=== PATIENT | female | born 1945 | race Caucasian/White ===

== ENCOUNTER → 2017-03-09 | Day surgery (SDC) | payer MEDICARE, BC ==
[~2017-03-09] MED LIST: BUPIVACAINE HCL 0.5 % INJ/PF 30 ML SDV ONE
--- NOTE | 2017-03-09 09:00 | Operative Report ---
PROCEDURE: KNEE RADIOFREQUENCY left under ultrasound guidance Preoperative Diagnosis: Left knee osteoarthritis Postoperative Diagnosis: Left knee osteoarthritis 1. Superolateral genicular branch from the vastus lateralis 2. Superomedial genicular branch from the vastus medialis 3. Inferomedial genicular branch from the saphenous nerve 4. Medial retinacular branch from the vastus intermedius DATE OF PROCEDURE: March 09, 2017 ANESTHESIA: Local anesthesia COMPLICATIONS: None reported PROCEDURE IN DETAIL: Hx/PE/meds/allergies/applicable labs reviewed. No changes and no contraindications were found. Full description of the procedure was provided including benefits as well as possible complications including transient increased pain, stomach irritation, mood alteration, transient weakness or parasthesias as well as more serious nerve injury, bleeding, infection or allergic reaction. Informed consent was obtained and documented. The patient was brought to the procedure room and placed on the exam table in a comfortable supine position. The place for needle placement was obtained by manual palpation with ultrasound confirmation. The sterile field was prepared by chloroprep and sterile drapes. Local anesthesia superficial and deep was provided by local infiltration of 2% lidocaine. A 17g 50 mm radiofrequency introducer needle with a 4 mm active tip was placed overlying the left knee joint and using ultrasound guidance the needle was advanced to a bony endpoint on the superiolateral portion of the femoral condyle of the left knee. A second needle was advanced to a bony endpoint on the superiomedial portion of the femoral condyle. A third needle was then placed over the inferiomedial portion of the tibial condyle until a bony endpoint was met. (optional 4th needle placed 3mm above the patella). Attempted aspiration yielded no blood. Transverse ultrasound views showed all the needles at 50% depth of the femur and tibia. Motor stimulation was tested at 2.0 volts with no leg movement. Images were saved in AP and lateral. A mixture consisting of 0.5% bupivacaine was slowly injected. Then a radiofrequency ablation of each of the geniculate nerves were done at 80 degrees Celsius for 2 minutes and 30 seconds each. The needles were withdrawn. The patient tolerated the procedure well. After observation the patient was discharged with instructions and follow up. They were also provided contact information to call regarding any concerning symptoms or questions. IMPRESSION: 1. Successful geniculate left knee radiofrequency ablation was performed. 2. The patient was given prescription of home medicines. 3. RTC in 1-2 week(s).
== END ==
LOC: RAD 07:48
PROVIDERS: ATTEND Family Medicine
PROC: 3E0T3TZ Introduction of Destructive Agent into Peripheral Nerves and Plexi, Percutaneous Approach (ICD-10-PCS; principal; 2017-03-09)
DX: M17.12 Unilateral primary osteoarthritis, left knee (principal)
CPT/HCPCS: 64640

== ENCOUNTER 2018-10-09 14:29 | Emergency (ER) | payer MEDICARE, BC ==
[2018-10-09] MEDS ORDERED: FENTANYL CITRATE INJ/PF 100 MCG/2 ML AMPUL IV ONE (15:31)
[2018-10-09] MEDS ORDERED: ONDANSETRON HCL INJ/PF 4 MG/2 ML SDV IV ONE (15:31)
--- NOTE | 2018-10-09 15:34 | ER Document Report ---
ED General - General Chief Complaint: Fall Stated Complaint: FALL Time Seen by Provider: 10/09/18 15:18 Primary Care Provider: KIM BETHEA MD [Primary Care Provider] - Follow up as needed Mode of Arrival: Medic Information source: Patient, Relative, Emergency Med Personnel, [facility] Records Notes: 73-year-old female with reflux presents with an obvious deformity to her right ankle after a trip and fall that occurred just prior to arrival. Patient states that she was walking in the parking lot when she tripped over a parking curb. She denies head injury, pain in her knees or upper extremities, neck or back. She denies any preceding chest pain, shortness of breath, dizziness. Patient is not on any blood thinning medications. She does report a recent left knee meniscal repair a few weeks ago with Dr. Mendez. TRAVEL OUTSIDE OF THE [place] IN LAST 30 DAYS: No - HPI Onset: Just prior to arrival Onset/Duration: Sudden Quality of pain: Throbbing Severity: Severe Pain Level: 4 Associated symptoms: Leg swelling. denies: Chest pain, Nonproductive cough, Productive cough, Fever, Nausea, Vomiting, Shortness of breath, Weakness Exacerbated by: Movement Relieved by: Denies Similar symptoms previously: No Recently seen / treated by doctor: No - Related Data Allergies/Adverse Reactions: hydrochlorothiazide [From Hyzaar] Allergy (Intermediate, Verified 07/22/14 13:58) lisinopril [Lisinopril] Allergy (Intermediate, Verified 07/22/14 13:58) losartan potassium [From Hyzaar] Allergy (Intermediate, Verified 07/22/14 13:58) ciprofloxacin [From Cipro] Adverse Reaction (Verified 07/22/14 13:58) ciprofloxacin HCl [From Cipro] Adverse Reaction (Verified 07/22/14 13:58) Past Medical History - General Information source: Patient, Relative, [facility] Records - Social History Smoking Status: Never Smoker Frequency of alcohol use: None Drug Abuse: None Lives with: Family Family History: Reviewed & Not Pertinent Patient has suicidal ideation: No Patient has homicidal ideation: No - Past Medical History Cardiac Medical History: Reports: Hx Hypercholesterolemia Renal/ Medical History: Denies: Hx Peritoneal Dialysis Past Surgical History: Reports: Hx Bowel Surgery - partial colon removal hemmroid ectomy, Hx Hysterectomy - Immunizations Hx Diphtheria, Pertussis, Tetanus Vaccination: Yes Review of Systems - Review of Systems Notes: REVIEW OF SYSTEMS: CONSTITUTIONAL : Denies fever, chills, or sweats. Denies recent illness. Denies weight loss, recent hospitalizations. EENT: Denies visual changes, eye pain. Denies sore throat, oral lesions, difficulty swallowing. CARDIOVASCULAR: Denies chest pain. Denies palpitations. Denies lower extremity edema. RESPIRATORY: Denies cough. Denies shortness of breath, wheezing. GASTROINTESTINAL: Denies abdominal pain or distention. Denies nausea, vomiting, or diarrhea. Denies blood in vomitus, stools, or per rectum. Denies black, tarry stools. Denies constipation. GENITOURINARY: Denies difficulty urinating, painful urination, frequency, blood in urine, or vaginal discharge. MUSCULOSKELETAL: Denies back or neck pain or stiffness. +joint pain or swelling. SKIN: Denies rash, lesions or sores. HEMATOLOGIC : Denies easy bruising or bleeding. LYMPHATIC: Denies swollen glands. NEUROLOGICAL: Denies confusion or altered mental status. Denies loss of consciousness. Denies dizziness or lightheadedness. Denies headache. Denies weakness or paralysis. Denies problems difficulty with ambulation, slurred speech. Denies sensory loss, numbness, or tingling. Denies seizures. PSYCHIATRIC: Denies anxiety or stress. Denies depression, suicidal ideation, or homicidal ideation. Denies visual or auditory hallucinations. Physical Exam - Vital signs Vitals: Temp Pulse Resp BP Pulse Ox 97.2 F 85 14 134/77 H 95 10/09/18 14:43 10/09/18 14:43 10/09/18 14:43 10/09/18 14:43 10/09/18 14:43 - Notes Notes: PHYSICAL EXAMINATION: GENERAL: Well-appearing, well-nourished and in no acute distress. GCS 15 HEAD: Atraumatic, normocephalic. EYES: Pupils equal round and reactive to light, extraocular movements intact, sclera anicteric, conjunctiva are normal. ENT: Nares patent, oropharynx clear without exudates. Moist mucous membranes. No hemanotympanum . No blood in nares. No dental fracture NECK: Normal range of motion, supple without lymphadenopathy. Trachea midline LUNGS: Breath sounds clear to auscultation bilaterally and equal. No wheezes rales or rhonchi. HEART: Regular rate and rhythm without murmurs. Pulses intact all throughout. ABDOMEN: Soft, nontender, nondistended abdomen. No guarding, no rebound. No masses appreciated. Musculoskeletal: Right lower extremity with obvious distal deformity, ecchymosis, pain with palpation. DP, PT pulse intact. Mild ecchymosis to the left knee secondary to surgery patient reports seen there previously. No midline tenderness of the cervical, thoracic or lumbar spine. No step-offs, no deformities. Patient is able to move the other 3 extremities without difficulty. NEUROLOGICAL: Cranial nerves grossly intact. Normal speech, normal gait. Normal sensory, motor, and reflex exams. PSYCH: Normal mood, normal affect. SKIN: Ecchymosis to right ankle, left knee Course - Re-evaluation Re-evalutation: Laboratory 10/09/18 10/09/18 07 16:19 16:19 16:19 WBC 8.1 RBC 4.19 Hgb 13.8 Hct 41.8 MCV 100 H MCH 32.9 MCHC 33.0 RDW 14.6 H Plt Count 194 Seg Neutrophils % 74.7 Lymphocytes % 16.0 Monocytes % 8.3 Eosinophils % 0.7 Basophils % 0.3 Absolute Neutrophils 6.1 Absolute Lymphocytes 1.3 Absolute Monocytes 0.7 Absolute Eosinophils 0.1 Absolute Basophils 0.0 PT 12.4 INR 0.92 APTT 26.3 Sodium 136.6 L Potassium 4.4 Chloride 103 Carbon Dioxide 28 Anion Gap 6 BUN 12 Creatinine 0.76 Est GFR ( Amer) > 60 Est GFR (Non-Af Amer) > 60 Glucose 113 H Calcium 8.9 Total Bilirubin 0.7 Direct Bilirubin 0.3 Neonat Total Bilirubin Not Reportable Neonat Direct Bilirubin Not Reportable Neonat Indirect Bili Not Reportable AST 23 ALT 22 Alkaline Phosphatase 64 Total Protein 6.4 Albumin 3.8 Blood Type Antibody Screen 10/09/18 16:19 WBC RBC Hgb Hct MCV MCH MCHC RDW Plt Count Seg Neutrophils % Lymphocytes % Monocytes % Eosinophils % Basophils % Absolute Neutrophils Absolute Lymphocytes Absolute Monocytes Absolute Eosinophils Absolute Basophils PT INR APTT Sodium Potassium Chloride Carbon Dioxide Anion Gap BUN Creatinine Est GFR ( Amer) Est GFR (Non-Af Amer) Glucose Calcium Total Bilirubin Direct Bilirubin Neonat Total Bilirubin Neonat Direct Bilirubin Neonat Indirect Bili AST ALT Alkaline Phosphatase Total Protein Albumin Blood Type A POSITIVE Antibody Screen NEGATIVE Ankle X-Ray 10/09/18 00:00 IMPRESSION: Near anatomic reduction with no evidence for residual dislocation. Mild residual displacement of intra-articular fragments of the medial malleolus and posterior tibia. Pelvis X-Ray 10/09/18 15:28 IMPRESSION: No evidence of acute bony abnormality of the pelvis. Tibia/Fibula X-Ray 10/09/18 15:28 IMPRESSION: 1. Comminuted displaced distal tib-fib fracture and dislocation. Likely medial and posterior malleoli distal tibial fractures with posterolateral dislocation of the talus in relation to the distal tibia. 2. Obliquely oriented distal fibular fracture with lateral displacement of the distal fibular fracture fragment. Recommend dedicated ankle views for complete characterization. Lower Extremity CT 10/09/18 17:02 IMPRESSION: Highly comminuted fracture - dislocation of the right ankle mortise- distal tibia and fibula. Distal fibular fracture main diaphysis appears impacted approximately 6 cm. Distal tibia is medially dislocated 2.3 cm. Numerous intra-articular fracture fragments are present in the posterior and lateral joint space, with origins from both tibia and fibular articular components, largest fragment measuring 2.9 cm. The talus and calcaneus appear intact as does the remainder of the visualized mid and forefoot. Temp Pulse Resp BP Pulse Ox 97.2 F 85 14 134/77 H 95 10/09/18 14:43 10/09/18 14:43 10/09/18 14:43 10/09/18 14:43 10/09/18 14:43 10/09/18 15:34 73-year-old female presented after a trip and fall just prior to arrival. Patient has obvious deformity to her right ankle. She did receive fentanyl by EMS prior to arrival but has been waiting in the emergency department for some time and is requesting additional pain medication. Exam is significant for an obvious deformity of her right ankle with intact pulses. No other obvious signs of trauma. Imaging pending. Patient did receive fentanyl and Zofran. 10/09/18 16:[address] of her head and neck. 10/09/18 16:41 Seeking guidance from orthopedic surgery who is currently in the operating room. Questioning whether he would like a CT dedicated to the lower extremity and whether or not I should attempt to reduce and splint this fracture. Nursing has taken down the patient's information and Dr. Carolina states that he will get back to me. 10/09/18 17:28 Dr. Carolina reviewed the films and recommends reduction with splint placement. Will call back if unable to successfully reduce or patient unable to go home. 10/09/18 19:32 Dr. Carolina at the bedside and states that he spoke to the patient's orthopedic surgeon Dr. Mendez who will see the patient tomorrow. Patient is resting comfortably in her splint. She was provided copies of her imaging. 10/10/18 10:50 Patient states that she has a walker at home and will be able to obtain a wheelchair tomorrow morning. Her daughter is staying with her and can help her. She states she has no steps in the house. She was offered admission to our facility but states that she would like to see her own orthopedic surgeon tomorrow. We had a successful reduction and patient was placed in a sugar tong splint. Instructions regarding increased pain and loosening of the splint was given to the patient and her daughter. No evidence of compartment syndrome. Cap refill and sensation intact after splint placement. Patient was evaluated and treated as appropriate for the patient's presenting symptoms and complaint, with consideration of any critical or life threatening conditions that may be associated with their obtained history and exam as noted above. All results were discussed with patient and daughter who is at the bedside. Patient provided the opportunity to ask questions, and express concerns. Patient was educated on treatments based on their presumed diagnosis as noted above. At this time we will discharge the patient with return precautions and follow-up recommendations. Verbal discharge instructions given a the bedside. Medication warnings reviewed. Patient is in agreement with this plan and has verbalized understanding of return precautions. After careful consideration I feel that that patient can be safely discharged from the emergency department, they were advised to followup with a primary care physician in 2-3 days. Dictation on this chart was performed using voice recognition software and may result in unintended grammatical, spelling, syntax or errors. - Vital Signs Vital signs: Temp Pulse Resp BP Pulse Ox 98.5 F 91 18 131/86 H 96 10/09/18 19:59 10/09/18 19:59 10/09/18 19:59 10/09/18 19:59 10/09/18 19:59 - Laboratory Result Diagrams: 10/09/18 16:19 10/09/18 16:19 Laboratory results interpreted by me: 10/09/18 10/09/18 16:19 16:19 MCV 100 H RDW 14.6 H Sodium 136.6 L Glucose 113 H - Diagnostic Test Radiology reviewed: Image reviewed, Reports reviewed Procedures - Conscious Sedation Conscious sedation Time started: 18:30 Consent obtained: Yes Prior complications: Procedural sedation Normal healthy pt.: P1. - ASA Classification Airway Evaluation: Normal anatomy Mallampati Classification: Class 1 Used during procedure: Suction available, IV access obtained, Pulse ox on pt., manager sales support on pt. Medications administered: Diprivan Complications: No - Joint Reduction/Fracture Care Right Ankle Time completed: 18:30 Consent obtained: Yes Conscious sedation: Yes Pre-procedure NV exam: Yes Fracture: Closed Post-procedure NV exam: Yes Post-reduction x-ray: Joint reduced Reduction attempts: 1 Complications: No Discharge - Discharge Clinical Impression: Trimalleolar fracture of right ankle Qualifiers: Encounter type: initial encounter Fracture type: closed Qualified Code(s): S82.851A - Displaced trimalleolar fracture of right lower leg, initial encounter for closed fracture Fall Qualifiers: Encounter type: initial encounter Qualified Code(s): W19.XXXA - Unspecified fall, initial encounter Condition: Good Disposition: HOME, SELF-CARE Instructions: Dislocation ([facility]), Fracture of Distal Fibula ([facility]), Fractured Ankle (Bimalleolar) ([facility]) Additional Instructions: Please return immediately to the emergency department if you experiencing worsening pain, numbness. You can loosen the Terence wrap on your splint if your swelling worsens. Please attempt to ice and keep your leg elevated. Please bring your imaging to your orthopedic surgeon Dr. Mendez tomorrow. Follow up with your [id number] hours for further care or return to the ED IMMEDIATELY if symptoms worsen or you have any concerns. If you cannot afford to follow up with your primary care physician a list of low cost clinics have been provided at the end of your discharge papers as well. Most prescribed medications have multiple side effects. The safest thing to do is when filling your prescription speak to your pharmacist regarding possible interactions with your normal home medications and over the counter medications such as Ibuprofen, Tylenol, Benadryl. If you experience any symptoms that cause you discomfort or concern you should discontinue the medication immediately and return to the emergency room or call your primary care physician. Prescriptions: Hydrocodone/Acetaminophen [[place] 5-325 mg Tablet] 1 tab PO Q6H #12 tablet Forms: Elevated Blood Pressure Referrals: KIM BETHEA MD [Primary Care Provider] - Follow up as needed
--- NOTE | 2018-10-09 16:34 | RADIOLOGY REPORT (SQ) ---
EXAM DESCRIPTION: TIBIA FIBULA RIGHT COMPLETED DATE/TIME: 10/09/2018 4:11 pm REASON FOR STUDY: fall obvious deform COMPARISON: None. NUMBER OF VIEWS: Two views. TECHNIQUE: Two radiographic images acquired of the right tibia and fibula to include the knee and an kle in at least one projection. LIMITATIONS: None. FINDINGS: MINERALIZATION: Normal. BONES: Comminuted displaced distal tib-fib fracture/dislocation. Fracture of the medial mid and post erior malleoli with associated displacement. There is posterolateral dislocation of the talus in rel ation to the distal tibia. Obliquely oriented comminuted fracture of the distal fibula. There is 2 shaft width lateral displacement of the distal fibular fracture fragment. SOFT TISSUES: Soft tissue swelling about the ankle. OTHER: No other significant finding. IMPRESSION: 1. Comminuted displaced distal tib-fib fracture and dislocation. Likely medial and pos terior malleoli distal tibial fractures with posterolateral dislocation of the talus in relation to t he distal tibia. 2. Obliquely oriented distal fibular fracture with lateral displacement of the distal fibular fractu re fragment. Recommend dedicated ankle views for complete characterization. TECHNICAL DOCUMENTATION: JOB ID: [id number] [employer]- All Rights Reserved Reading location - IP/workstation name: [email or web address]
[2018-10-09 16:35] LABS: ABSOLUTE EOSINOPHILS # (AUTO) 0.1 10^3/uL (0.0-0.6); ABSOLUTE LYMPHOCYTES (AUTO) 1.3 10^3/uL (0.5-4.7); ABSOLUTE MONOCYTES (AUTO) 0.7 10^3/uL (0.1-1.4); ABSOLUTE NEUT (AUTO) 6.1 10^3/uL (1.7-8.2); BASOPHILS % (AUTO) 0.3 % (0-2); EOSINOPHILS % (AUTO) 0.7 % (0-6); HEMATOCRIT 41.8 % (36.0-47.0); HEMOGLOBIN 13.8 g/dL (12.0-15.5); MEAN CORPUSCULAR HEMOGLOBIN 32.9 pg (27.0-33.4); MEAN CORPUSCULAR VOLUME 100 fl (80-97); MONOCYTES % (AUTO) 8.3 % (3-13); PLATELET COUNT 194 10^3/uL (150-450); RED BLOOD COUNT 4.19 10^6/uL (3.72-5.28); RED CELL DISTRIBUTION WIDTH 14.6 % (11.5-14.0); SEGMENTED NEUTROPHILS % (AUTO) 74.7 % (42-78); TOTAL CELLS COUNTED % (AUTO) 100 %; WHITE BLOOD COUNT 8.1 10^3/uL (4.0-10.5)
--- NOTE | 2018-10-09 16:35 | RADIOLOGY REPORT (SQ) ---
EXAM DESCRIPTION: PELVIS AP COMPLETED DATE/TIME: 10/09/2018 4:11 pm REASON FOR STUDY: fall obvious deform COMPARISON: None. NUMBER OF VIEWS: One view TECHNIQUE: AP Pelvis LIMITATIONS: None. FINDINGS: MINERALIZATION: Decreased. HIPS: No acute fracture or dislocation. No worrisome bone lesions. Osteophytosis and mild joint spac e loss. PELVIS AND SACRUM: No acute fracture or dislocation. No worrisome bone lesions. PUBIS AND ISCHIUM: No acute fracture. LOWER LUMBAR SPINE: No significant findings as visualized. Spondylosis and facet arthropathy. SOFT TISSUES: Surgical clips and pelvic phleboliths overlie soft tissues. OTHER: No other significant finding. IMPRESSION: No evidence of acute bony abnormality of the pelvis. COMMENT: Pelvic fractures are often occult on plain radiographs. If strong clinical suspicion for f racture, recommend CT or MR. TECHNICAL DOCUMENTATION: JOB ID: [id number] [employer]- All Rights Reserved Reading location - IP/workstation name: [email or web address]
[2018-10-09 16:42] LABS: INTERNATIONAL RATION (INR) 0.92; PARTIAL THROMBOPLASTIN TIME 26.3 SEC (23.5-35.8); PROTHROMBIN TIME 12.4 SEC (11.4-15.4)
[2018-10-09 17:02] LABS: ALANINE AMINOTRANSFERASE 22 U/L (9-52); ALBUMIN 3.8 g/dL (3.5-5.0); ALKALINE PHOSPHATASE 64 U/L (38-126); ANION GAP 6 (5-19); ASPARTATE AMINO TRANSFERASE 23 U/L (14-36); BILIRUBIN,DIRECT 0.3 mg/dL (0.0-0.4); BILIRUBIN,TOTAL 0.7 mg/dL (0.2-1.3); BLOOD UREA NITROGEN 12 mg/dL (7-20); CALCIUM 8.9 mg/dL (8.4-10.2); CARBON DIOXIDE 28 mmol/L (22-30); CHLORIDE 103 mmol/L (98-107); GLUCOSE 113 mg/dL (75-110); POTASSIUM 4.4 mmol/L (3.6-5.0); SODIUM 136.6 mmol/L (137-145); TOTAL PROTEIN 6.4 g/dL (6.3-8.2)
[2018-10-09] MEDS ORDERED: HYDROMORPHONE HCL INJ/PF 2 MG/ML AMPULE IV ONE (17:21)
[2018-10-09] MEDS ORDERED: PROPOFOL INJ 200 MG/20 ML VIAL IV ONE (17:29)
[2018-10-09] MEDS ORDERED: FENTANYL CITRATE INJ/PF 100 MCG/2 ML AMPUL ONE (17:47)
--- NOTE | 2018-10-09 18:01 | RADIOLOGY REPORT (SQ) ---
EXAM DESCRIPTION: CT RT LOWER EXTREMITY WITHOUT COMPLETED DATE/TIME: 10/09/2018 5:46 pm REASON FOR STUDY: fracture COMPARISON: None. TECHNIQUE: Axial imaging performed through the right ankle with reformatted coronal and sagittal aurora ging windowed for bone and soft tissues. Images saved to PACS. 3D IMAGING: Were 3D images as MIP, SSD, or volume rendering performed at the work station? Yes All CT scanners at this facility use dose modulation, iterative reconstruction, and/or weight based d osing when appropriate to reduce radiation dose to as low as reasonably achievable (ALARA). [facility]: Dose Right [facility]: CareDose [facility]: Dose Right [facility]: Teradose 4D [facility]: [employer] LIMITATIONS: None. RADIATION DOSE: CT Rad equipment meets quality standard of care and radiation dose reduction techniq ues were employed. CTDIvol: 4.1 mGy. DLP: 102 mGy-cm. mGy. FINDINGS: SOFT TISSUES: Diffuse swelling. No radiopaque foreign body. BONES: Highly comminuted fracture - dislocation of the right ankle mortise- distal tibia and fibula. Distal fibular fracture main diaphysis appears impacted approximately 6 cm. Distal tibia is mediall y dislocated 2.3 cm. Numerous intra-articular fracture fragments are present in the posterior and la teral joint space, with origins from both tibia and fibular articular components, largest fragment me asuring 2.9 cm. The talus and calcaneus appear intact as does the remainder of the visualized mid an d forefoot. . MINERALIZATION: Normal. OTHER: No other significant finding. IMPRESSION: Highly comminuted fracture - dislocation of the right ankle mortise- distal tibia and fi bula. Distal fibular fracture main diaphysis appears impacted approximately 6 cm. Distal tibia is m edially dislocated 2.3 cm. Numerous intra-articular fracture fragments are present in the posterior and lateral joint space, with origins from both tibia and fibular articular components, largest fragm ent measuring 2.9 cm. The talus and calcaneus appear intact as does the remainder of the visualized mid and forefoot. TECHNICAL DOCUMENTATION: JOB ID: [id number] [place]-72 Quality ID # [id number]: Final reports with documentation of one or more dose reduction techniques (e.g., Au tomated exposure control, adjustment of the mA and/or kV according to patient size, use of iterative reconstruction technique) 2010 [employer]- All Rights Reserved Reading location - IP/workstation name: [email or web address]
--- NOTE | 2018-10-09 18:58 | EKG REPORT ---
SEVERITY:- BORDERLINE ECG - SINUS RHYTHM BORDERLINE T ABNORMALITIES, INFERIOR LEADS : Confirmed by: Brandon Roach MD 09-Oct-2018 18:57:40
--- NOTE | 2018-10-09 19:01 | RADIOLOGY REPORT (SQ) ---
EXAM DESCRIPTION: ANKLE RIGHT AP/LATERAL COMPLETED DATE/TIME: 10/09/2018 6:27 pm REASON FOR STUDY: post reduction COMPARISON: Earlier exam EXAM PARAMETERS: NUMBER OF VIEWS: Two view. TECHNIQUE: AP and lateral radiographic images acquired of the right ankle. LIMITATIONS: None. FINDINGS: MINERALIZATION: Normal. BONES: Near anatomic reduction with no evidence for residual dislocation. Mild residual displacement of intra-articular fragments of the medial malleolus and posterior tibia. JOINTS: Moderate effusion. SOFT TISSUES: Moderate soft tissue swelling. No radiopaque foreign body. OTHER: No other significant finding. IMPRESSION: Near anatomic reduction with no evidence for residual dislocation. Mild residual displa cement of intra-articular fragments of the medial malleolus and posterior tibia. TECHNICAL DOCUMENTATION: JOB ID: [id number] [place]-[id number] 2010 [employer]- All Rights Reserved Reading location - IP/workstation name: [email or web address]
--- NOTE | 2018-10-09 19:29 | PDOC CONSULTATION ---
Consultation Consult Date: 10/09/18 Attending physician:: ROBERT JAMES Provider Consulted: KASIA MUNOZ History of Present Illness Admission Date/PCP: KIM BETHEA MD Patient complains of: Right ankle pain History of Present Illness: ALVIN العلي is a 73 year old female who recently underwent left knee arthroscopy when she was ambulating today and intermittently tripped onto her right ankle. Patient had notable deformity and inability to weight-bear. She was then brought to emergency room where trimalleolar ankle fracture was noted. Patient underwent closed reduction in the emergency room. Patient states her pain has improved. Denies numbness or tingling. Pain 5/10. Past Medical History Cardiac Medical History: Reports: Hyperlipidema Past Surgical History Past Surgical History: Reports: Hysterectomy Social History Lives with: Family Smoking Status: Never Smoker Family History Family History: Reviewed & Not Pertinent Parental Family History Reviewed: No Children Family History Reviewed: No Sibling(s) Family History Reviewed.: No Medication/Allergy Home Medications: Alprazolam [Xanax 0.5 mg Tablet] 0.5 mg PO DAILY PRN 07/22/14 Atenolol [Tenormin 25 mg Tablet] 25 mg PO DAILY 07/22/14 Gabapentin 800 mg PO Q8 07/22/14 Hydrocodone/Acetaminophen [[place] 5-325 Tablet] 1 each PO Q4 PRN #20 tablet 07/22/14 Simvastatin [Zocor 20 mg Tablet] 20 mg PO HSP PRN 07/22/14 Zolpidem Tartrate 10 mg PO HSP PRN 07/22/14 Allergies/Adverse Reactions: hydrochlorothiazide [From Hyzaar] Allergy (Intermediate, Verified 07/22/14 13:58) lisinopril [Lisinopril] Allergy (Intermediate, Verified 07/22/14 13:58) losartan potassium [From Hyzaar] Allergy (Intermediate, Verified 07/22/14 13:58) ciprofloxacin [From Cipro] Adverse Reaction (Verified 07/22/14 13:58) ciprofloxacin HCl [From Cipro] Adverse Reaction (Verified 07/22/14 13:58) Review of Systems Constitutional: ABSENT: chills, fever(s), headache(s), weight gain, weight loss Eyes: ABSENT: visual disturbances Ears: ABSENT: hearing changes Cardiovascular: ABSENT: chest pain, dyspnea on exertion, edema, orthropnea, palpitations Respiratory: ABSENT: cough, hemoptysis Gastrointestinal: ABSENT: abdominal pain, constipation, diarrhea, hematemesis, hematochezia, nausea, vomiting Genitourinary: ABSENT: dysuria, hematuria Musculoskeletal: PRESENT: as per HPI Integumentary: ABSENT: rash, wounds Neurological: ABSENT: abnormal gait, abnormal speech, confusion, dizziness, focal weakness, syncope Psychiatric: ABSENT: anxiety, depression, homidical ideation, suicidal ideation Endocrine: ABSENT: cold intolerance, heat intolerance, menstrual abnormalities, polydipsia, polyuria Hematologic/Lymphatic: ABSENT: easy bleeding, easy bruising, lymphadenopathy Physical Exam Vital Signs: Temp Pulse Resp BP Pulse Ox 97.2 F 85 14 134/77 H 95 10/09/18 14:43 10/09/18 14:43 10/09/18 14:43 10/09/18 14:43 10/09/18 14:43 Intake & Output 10/08/18 10/09/18 10/10/18 06:59 06:59 06:59 Weight 98.43 kg General appearance: PRESENT: no acute distress, well-developed, well-nourished Head exam: PRESENT: atraumatic, normocephalic Eye exam: ABSENT: scleral icterus Ear exam: PRESENT: normal external ear exam Mouth exam: PRESENT: moist, tongue midline Neck exam: ABSENT: carotid bruit, JVD, lymphadenopathy, thyromegaly Respiratory exam: PRESENT: unlabored Cardiovascular exam: PRESENT: RRR. ABSENT: diastolic murmur, rubs, systolic mu rmur Pulses: PRESENT: normal dorsalis pedis pul, +2 pedal pulses bilateral Vascular exam: PRESENT: normal capillary refill GI/Abdominal exam: PRESENT: normal bowel sounds, soft. ABSENT: distended, guarding, mass, organolmegaly, rebound, tenderness Rectal exam: PRESENT: deferred Musculoskeletal exam: PRESENT: other - Right ankle: Splint intact. Intact flexion/extension of the toes. Cap refill less than 2 seconds. Compartments soft and compressible no sign of compartment syndrome. No sensory deficits. Left knee: Surgical incisions healing no erythema or drainage. Mild ecchymosis. Neurological exam: PRESENT: alert, awake, oriented to person, oriented to place, oriented to time, oriented to situation, CN II-XII grossly intact. ABSENT: m otor sensory deficit Psychiatric exam: PRESENT: appropriate affect, normal mood. ABSENT: homicidal ideation, suicidal ideation Skin exam: PRESENT: dry, intact, warm. ABSENT: cyanosis, rash Results Laboratory Results: 10/09/18 16:19 10/09/18 16:19 10/09/18 10/09/18 10/09/18 16:19 16:19 16:19 WBC 8.1 RBC 4.19 Hgb 13.8 Hct 41.8 MCV 100 H MCH 32.9 MCHC 33.0 RDW 14.6 H Plt Count 194 Seg Neutrophils % 74.7 Lymphocytes % 16.0 Monocytes % 8.3 Eosinophils % 0.7 Basophils % 0.3 Absolute Neutrophils 6.1 Absolute Lymphocytes 1.3 Absolute Monocytes 0.7 Absolute Eosinophils 0.1 Absolute Basophils 0.0 Sodium 136.6 L Potassium 4.4 Chloride 103 Carbon Dioxide 28 Anion Gap 6 BUN 12 Creatinine 0.76 Est GFR ( Amer) > 60 Est GFR (Non-Af Amer) > 60 Glucose 113 H Calcium 8.9 Total Bilirubin 0.7 AST 23 ALT 22 Alkaline Phosphatase 64 Total Protein 6.4 Albumin 3.8 Blood Type A POSITIVE Antibody Screen NEGATIVE Impressions: Ankle X-Ray 10/09/18 00:00 IMPRESSION: Near anatomic reduction with no evidence for residual dislocation. Mild residual displacement of intra-articular fragments of the medial malleolus and posterior tibia. Pelvis X-Ray 10/09/18 15:28 IMPRESSION: No evidence of acute bony abnormality of the pelvis. Tibia/Fibula X-Ray 10/09/18 15:28 IMPRESSION: 1. Comminuted displaced distal tib-fib fracture and dislocation. Likely medial and posterior malleoli distal tibial fractures with posterolateral dislocation of the talus in relation to the distal tibia. 2. Obliquely oriented distal fibular fracture with lateral displacement of the distal fibular fracture fragment. Recommend dedicated ankle views for complete characterization. Lower Extremity CT 10/09/18 17:02 IMPRESSION: Highly comminuted fracture - dislocation of the right ankle mortise- distal tibia and fibula. Distal fibular fracture main diaphysis appears impacted approximately 6 cm. Distal tibia is medially dislocated 2.3 cm. Numerous intra-articular fracture fragments are present in the posterior and lateral joint space, with origins from both tibia and fibular articular comp onents, largest fragment measuring 2.9 cm. The talus and calcaneus appear intact as does the remainder of the visualized mid and forefoot. Status: Image reviewed by me - I have reviewed patient's radiographs demonstrate trimalleolar ankle fracture dislocation. Postreduction radiographs demonstrate significantly improved alignment there is mild incongruency along the tibiotalar articulation Assessment & Plan - Diagnosis (1) Trimalleolar fracture of right ankle Qualifiers: Encounter type: initial encounter Fracture type: closed Qualified C ode(s): S82.851A - Displaced trimalleolar fracture of right lower leg, initial encounter for closed fracture Is this a current diagnosis for this admission?: Yes Plan: Patient sustained a trimalleolar ankle fracture and underwent closed reduction in the emergency room. Reduction demonstrates significantly improved alignment and thus do not feel patient requires urgent operative intervention however I have encouraged her to maintain nonweightbearing and aggressive elevation. Options for treatment include inpatient admission and then set patient up for operative treatment within the next 24-48 hours versus patient follow-up with her primary orthopedic surgeon. Patient elected for discharge to home and is to follow-up with local orthopedist.
[2018-10-09 20:00] VITALS: BP 131/86
== END 2018-10-09 20:00 | disposition home or self-care (01) ==
LOC: ER 14:29
DX: S82.851A Displaced trimalleolar fracture of right lower leg, initial encounter for closed fracture (principal); W01.0XXA Fall on same level from slipping, tripping and stumbling without subsequent striking against object, initial encounter; Y93.01 Activity, walking, marching and hiking; Y92.481 Parking lot as the place of occurrence of the external cause; Z98.890 Other specified postprocedural states; Z88.8 Allergy status to other drugs, medicaments and biological substances
CPT/HCPCS: 93005; 99284; 99152; 96374; 96375; 86900; 86901; 36415; 86850; 85025; 85610; 85730; 80053; 73600; 72170; 73590; 73700; 93010; 27818; J3010; J1170; J2405; J2704